=== PATIENT | female | born 1995 | race Caucasian/White ===

== ENCOUNTER 2021-10-23 11:07 | Inpatient (IN) | payer MEDICAID ==
[~2021-10-23] VITALS: Ht 160 cm; Wt 66.2 kg
[2021-10-23 11:59] LABS: HEMOGLOBIN 13.9 gm/dl (12.3-15.3); RED BLOOD COUNT 4.44 M/UL (4.00-5.10); WHITE BLOOD COUNT 15.9 K/UL (4.5-11.0)
[2021-10-23 12:31] LABS: BUN/CREATININE RATIO 10 (0-10)
[2021-10-24 05:08] LABS: WHITE BLOOD COUNT 12.4 K/UL (4.5-11.0)
[2021-10-24 05:11] LABS: RED BLOOD COUNT 3.56 M/UL (4.00-5.10)
[2021-10-25 10:10] LABS: HBSAG SCREEN Negative (Negative); HIV SCREEN 4TH GENERATION WRFX Non Reactive (Non Reactive)
[2021-10-25 12:10] LABS: RUBELLA ANTIBODIES, IGG 0.96 index (Immune >0.99)
== END 2021-10-24 09:58 | disposition home or self-care (01) | DRG 832 ==
LOC: ER1 11:07 → CDU 12:47 → OB 18:31
PROVIDERS: Nurse Practitioner; ADMIT Obstetrics & Gynecology
DX: O23.02 Infections of kidney in pregnancy, second trimester (principal); N12 Tubulo-interstitial nephritis, not specified as acute or chronic; E86.0 Dehydration; O99.891 Other specified diseases and conditions complicating pregnancy; O99.342 Other mental disorders complicating pregnancy, second trimester; M54.9 Dorsalgia, unspecified; B96.29 Other Escherichia coli [E. coli] as the cause of diseases classified elsewhere; Z20.822 Contact with and (suspected) exposure to COVID-19; F17.200 Nicotine dependence, unspecified, uncomplicated; Z3A.23 23 weeks gestation of pregnancy; Z79.899 Other long term (current) drug therapy
CPT/HCPCS: 36415; 76805; 80053; 81001; 84702; 85025; 86592; 86762; 86850; 86900; 86901; 87040; 87077; 87086; 87186; 87340; 87389; 96360; 96361; 96367; 96374; 99284; C9113; J0696; J2405; J2550; J7030; J7070; J7120; U0002

== ENCOUNTER 2022-01-26 16:29 | Outpatient (CLI) | payer SELFPAY | END 2022-01-26 18:04 | disposition home or self-care (01) | LOC: GENOP 16:29 | DX: O99.891 Other specified diseases and conditions complicating pregnancy (principal); N89.8 Other specified noninflammatory disorders of vagina; O99.333 Smoking (tobacco) complicating pregnancy, third trimester; F17.210 Nicotine dependence, cigarettes, uncomplicated; Z88.1 Allergy status to other antibiotic agents; Z91.048 Other nonmedicinal substance allergy status; Z3A.36 36 weeks gestation of pregnancy | CPT/HCPCS: 83518; G0463 ==